=== PATIENT | male | born 1945 | race Caucasian/White ===

== ENCOUNTER 2020-12-30 10:12 | Emergency (ER) | payer MEDICARE ==
[~2020-12-30 10:12] MED LIST: CRESTOR40 MG PO; LEVOTHYROXINE75 MCG PO; LISINOPRIL20 MG PO; NORVASC 5 MG TAB5 MG PO
[2020-12-30 11:38] LABS: HEMOGLOBIN 15.4 gm/dl (14.0-17.5); RED BLOOD COUNT 4.87 M/UL (4.20-5.50); WHITE BLOOD COUNT 8.7 K/UL (4.5-11.0)
[2020-12-30 12:03] LABS: BUN/CREATININE RATIO 17 (0-10)
== END 2020-12-30 12:55 ==
LOC: ER1 10:12
PROVIDERS: Emergency Medicine
DX: T18.128A Food in esophagus causing other injury, initial encounter (principal); I10 Essential (primary) hypertension; Z85.46 Personal history of malignant neoplasm of prostate
CPT/HCPCS: 80048; 85025; 99284